=== PATIENT | male | born 1955 | race Caucasian/White ===

== ENCOUNTER 2016-06-19 12:52 | Emergency (ER) | payer MEDICAID ==
[2016-06-19] MEDS ORDERED: INDOMETHACIN 25 MG CAPSULE PO STA (13:55)
[2016-06-19] MEDS ORDERED: oxyCOD/ACETAMIN 5 MG/325 MG TABLET PO STA (13:55)
[2016-06-19] MEDS ORDERED: oxyCOD/ACETAMIN 5 MG/325 MG TABLET PO ONE (13:59)
[2016-06-19] MEDS ORDERED: INDOMETHACIN 25 MG CAPSULE PO ONE (13:59)
== END 2016-06-19 14:43 | disposition home or self-care (01) ==
DX: M10.072 Idiopathic gout, left ankle and foot (principal); M19.90 Unspecified osteoarthritis, unspecified site; I10 Essential (primary) hypertension; F17.200 Nicotine dependence, unspecified, uncomplicated
CPT/HCPCS: 99283; 99284; A9270

== ENCOUNTER 2017-06-04 13:18 | Emergency (ER) | payer MEDICAID ==
[2017-06-04 13:29] VITALS: BP 170/102
[2017-06-04] MEDS ORDERED: LIDOCAINE 1%-EPI 1:100000 20 ML MDV SUBQ STA (13:48)
[2017-06-04] MEDS ORDERED: HYDROcod/ACETAM 5/325 MG TABLET PO STA (13:48)
--- NOTE | 2017-06-04 13:49 | ED Physician Documentation ---
PD HPI LOWER EXT INJURY - Stated complaint Stated Complaint: KNEE PX - Chief complaint Chief Complaint: Ext Problem - History obtained from History obtained from: Patient - History of Present Illness PD HPI LOW EXT INJURY LOCATION: Other (Without specific trauma he has had 2 days of increasing left knee pain and swelling, he is unable to walk or bear weight now. He has had a history of gout but never in the knee. No fevers or chills.) Review of Systems Ten Systems: 10 systems reviewed and negative Constitutional: denies: Fever, Chills Cardiac: denies: Chest pain / pressure, Palpitations Respiratory: denies: Dyspnea, Cough GI: denies: Abdominal Pain PD PAST MEDICAL HISTORY - Past Medical History Past Medical History: Yes Cardiovascular: Hypertension Respiratory: None Neuro: None Endocrine/Autoimmune: None GI: None : None HEENT: None Psych: Anxiety Musculoskeletal: Osteoarthritis, Gout Derm: None - Past Surgical History Past Surgical History: No - Present Medications Home Medications: Ambulatory Orders Medication Instructions Recorded Confirmed Primidone 100 mg PO DAILY 04/29/14 06/04/17 Propranolol [Inderal] 40 mg PO BID 04/29/14 06/04/17 Albuterol Sulf [Ventolin Hfa 2 puffs PO DAILY 06/04/17 06/04/17 Inhaler] HYDROcod/ACETAM 5/325 [[place] 5/325] 1 - 2 ea PO Q6H PRN #15 tablet 06/04/17 Meloxicam [Mobic] 7.5 mg PO BIDWM PRN #15 tablet 06/04/17 - Allergies Allergies/Adverse Reactions: Allergies Allergy/AdvReac Type Severity Reaction Status Date / Time venom-honey bee Allergy Unknown Verified 06/04/17 13:29 [bee venom (honey bee)] - Social History Does the pt smoke?: No Smoking Status: Never smoker Does the pt drink ETOH?: Yes Does the pt have substance abuse?: No - Immunizations Immunizations are current?: Yes - POLST Patient has POLST: No PD ED PE NORMAL - Vitals Vital signs reviewed: Yes - General General: Alert and oriented X 3, No acute distress - HEENT HEENT: PERRL, EOMI - Neck Neck: Supple, no meningeal sign, No bony TTP - Back Back: No CVA TTP, No spinal TTP - Derm Derm: Normal color, Warm and dry - Extremities Extremities: Other (There is a large warm effusion of the left knee but without cellulitis. He is unable to range it. He walks only with significant pain.) - Neuro Neuro: Alert and oriented X 3, Normal speech - Psych Psych: Normal mood, Normal affect Results - Vitals Vitals: Vital Signs - 24 hr 06/04/17 13:28 Temperature 36.2 C L Heart Rate 87 Respiratory 16 Rate Blood Pressure 170/102 H O2 Saturation 99 Oxygen O2 Source Room air - Labs Labs: Microbiology 06/04/17 14:05 Body Fluid Culture - Preliminary Synovial Fluid Laboratory Tests 06/04/17 06/04/17 14:05 14:05 Fluid Source SYNOVIAL Fluid Color YELLOW Fluid Clarity HAZY Fluid WBC 7243 Fluid RBC 1461 Fluid Neutrophils % 90 Fluid Lymphocytes % 4 Fluid Monocytes % 5 Fluid Crystals NONE SEEN - Rads (name of study) L knee 4v Radiology: EMP read contemporaneously (Small to moderate effusion and ventral swelling with a distal tibial metaphysis enchondroma.) Procedures - Arthrocentesis Joint: Knee, Left Preparation: Consent obtained, Sterile prep and drape Anesthesia: Lidocaine 1% Fluid: Clear, Sent for cell count, Sent for crystals, Sent for culture, Fluid obtained - cc (65ml), Sent for gram stain Aftercare: Dressing applied, No complications PD MEDICAL DECISION MAKING - ED course ED course: 61-year-old gentleman with history of gout presents with an acute knee effusion and pain, he was medicated with Vicodin here and the effusion was drained his pain and no evidence of infection or crystals. The patient and family were counseled as to the diagnosis and need for follow- up. I counseled the patient with regard to signs and symptoms that would necessitate an urgent reevaluation in the emergency department. They understand they are welcome to return at any time if worse or if not improving as expected. This document was made in part using voice recognition software. While efforts are made to proofread this documents, sound alike and grammatical errors may occur. Departure - Departure Disposition: 01 Home, Self Care Clinical Impression: Effusion, left knee Condition: Good Record reviewed to determine appropriate education?: Yes Instructions: ED Effusion Knee Follow-Up: [facility] [Provider Group] - Within 1 week Prescriptions: HYDROcod/ACETAM 5/325 [[place] 5/325] 1 - 2 ea PO Q6H PRN #15 tablet PRN Reason: Pain Meloxicam [Mobic] 7.5 mg PO BIDWM PRN #15 tablet PRN Reason: Pain Comments: Your blood pressure was elevated today on check into the emergency department. This does not mean that you have hypertension, it is a common phenomenon to come to the emergency department and have elevated blood pressure. I recommend that you see your primary care physician within the week to have it rechecked when you are feeling better. Do not drink or drive while taking narcotic pain medication. Note that many narcotic pain relievers also contain Tylenol/acetaminophen. Please ensure that your total dose of acetaminophen from all sources does not exceed 3 g (3000 mg) per day. You may get constipated while on this medication. Take a stool softener such as Colace twice a day while you are on it. Also add an [id number] laxative such as senna or MiraLAX on any day that you do not have a bowel movement. If you received a narcotic pain medication or sedative while in the emergency department, do not drive for the next 24 hours.
--- NOTE | 2017-06-04 14:32 | XRAY Report ---
EXAM: LEFT KNEE RADIOGRAPHY EXAM DATE: 06/04/2017 02:00 PM. CLINICAL HISTORY: Knee pain. Trauma. COMPARISON: None. TECHNIQUE: 4 views. FINDINGS: Bones: No fracture or bone destructive process. An irregular medullary sclerotic area in the distal t ibial metaphysis measures 2.3 x 1.5 cm in lateral projection. No periostitis. Joints: No subluxation. Small to moderate joint effusion. Joint spaces are otherwise preserved. Soft Tissues: Anterior soft tissue swelling. Acetabular calcifications posterior lower thigh. IMPRESSION: 1. No fracture or bony malalignment. 2. [id number] joint effusion and ventral swelling. 3. An incidental 2.3 cm sclerotic area in the distal tibial metaphysis, compatible with enchondroma. [facility] Referring Provider Line: [phone] SITE ID: [id number]
[2017-06-04 14:47] LABS: CC,BF RBC 1461 /mm^3
[2017-06-04 15:10] LABS: LYMPHOCYTES %,BODY FLUID 4; MONOCYTES %,BODY FLUID 5 %
[2017-06-04 15:11] LABS: BF COLOR YELLOW; BF SOURCE SYNOVIAL
== END 2017-06-04 15:24 | disposition home or self-care (01) ==
LOC: ED 13:18
DX: M25.562 Pain in left knee (principal); M25.462 Effusion, left knee; M10.9 Gout, unspecified; M19.90 Unspecified osteoarthritis, unspecified site; I10 Essential (primary) hypertension
CPT/HCPCS: 20610; 73564; 87070; 87205; 89051; 89060; 99283; 99284; A9270

== ENCOUNTER 2017-07-02 09:51 | Outpatient (CLI) | payer MEDICAID ==
[2017-07-02 13:56] LABS: HEMOGLOBIN A1C 0.65 g/dL; HEMOGLOBIN A1C % 5.9 % (4.6-6.2)
[2017-07-02 14:13] LABS: ALBUMIN 3.7 g/dL (3.2-5.5); ALBUMIN/GLOBULIN RATIO 0.9 (1.0-2.2); ALKALINE PHOSPHATASE 75 IU/L (42-121); ALT ALANINE AMINOTRANSFERASE 49 IU/L (10-60); AST ASPARTATE AMINOTRANSFERASE 29 IU/L (10-42); BILIRUBIN,TOTAL 0.5 mg/dL (0.2-1.0); BUN - BLOOD UREA NITROGEN 16 mg/dL (6-20); CALCIUM 8.5 mg/dL (8.5-10.3); CARBON DIOXIDE - CO2 27 mmol/L (21-32); CHLORIDE 104 mmol/L (101-111); CHOL/HDL RATIO 4.3 (<5.0); CHOLESTEROL 214 mg/dL; CREATININE 0.9 mg/dL (0.6-1.2); GFR - MDRD 86 (>89); GLUCOSE 124 mg/dL (70-100); HDL CHOLESTEROL 50 mg/dL; LDL CHOLESTEROL,CALCULATED 137 mg/dL; LDL/HDL RATIO 2.7 (<3.6); SODIUM 136 mmol/L (135-145); TOTAL PROTEIN 7.7 g/dL (6.7-8.2); VLDL CHOLESTEROL 27 mg/dL
[2017-07-02 14:50] LABS: BASOPHILS % (AUTO) 0.4 %; EOSINOPHILS # (AUTO) 0.3 10^3/uL (0.0-0.7); EOSINOPHILS % (AUTO) 3.3 %; HGB - HEMOGLOBIN 14.5 g/dL (14.0-18.0); LYMPHOCYTES % (AUTO) 35.2 %; MEAN CORPUSCULAR HEMOGLOBIN 32.6 pg (27.0-31.0); MEAN CORPUSCULAR HGB CONC 33.8 g/dL (32.0-36.0); MEAN CORPUSCULAR VOLUME 96.5 fL (80.0-94.0); MEAN PLATELET VOLUME 9.2 fL (7.4-11.4); MONOCYTES # (AUTO) 0.7 10^3/uL (0.0-1.0); MONOCYTES % (AUTO) 8.2 %; NEUTROPHILS # (AUTO) 4.6 10^3/uL (1.5-6.6); NEUTROPHILS % (AUTO) 52.9 %; PLT - PLATELET COUNT 302 10^3/uL (130-450); RED BLOOD COUNT 4.44 10^6/uL (4.70-6.10); RED CELL DISTRIBUTION WIDTH 13.7 % (12.0-15.0); WHITE BLOOD COUNT 8.6 x10^3/uL (4.8-10.8)
== END 2017-07-02 09:52 | disposition home or self-care (01) ==
LOC: LAB.N 09:51
PROVIDERS: ATTEND Family Medicine
DX: E55.9 Vitamin D deficiency, unspecified (principal); E11.9 Type 2 diabetes mellitus without complications; E78.5 Hyperlipidemia, unspecified; M10.9 Gout, unspecified; I10 Essential (primary) hypertension
CPT/HCPCS: 36415; 80050; 80061; 82306; 83036; 83721

== ENCOUNTER 2017-09-09 10:24 | Emergency (ER) | payer MEDICAID ==
[2017-09-09 10:33] VITALS: BP 147/98
[2017-09-09] MEDS ORDERED: LIDOCAINE 1% 2 ML VIAL ONE (12:16)
[2017-09-09 13:22] LABS: BASOPHILS % (AUTO) 0.4 %; EOSINOPHILS # (AUTO) 0.2 10^3/uL (0.0-0.7); EOSINOPHILS % (AUTO) 1.9 %; HGB - HEMOGLOBIN 13.9 g/dL (14.0-18.0); LYMPHOCYTES # (AUTO) 2.7 10^3/uL (1.5-3.5); LYMPHOCYTES % (AUTO) 25.6 %; MEAN CORPUSCULAR HEMOGLOBIN 33.2 pg (27.0-31.0); MEAN CORPUSCULAR HGB CONC 34.3 g/dL (32.0-36.0); MEAN CORPUSCULAR VOLUME 96.9 fL (80.0-94.0); MEAN PLATELET VOLUME 8.7 fL (7.4-11.4); MONOCYTES # (AUTO) 1.2 10^3/uL (0.0-1.0); MONOCYTES % (AUTO) 11.6 %; NEUTROPHILS # (AUTO) 6.3 10^3/uL (1.5-6.6); NEUTROPHILS % (AUTO) 60.5 %; PLT - PLATELET COUNT 282 10^3/uL (130-450); RED BLOOD COUNT 4.18 10^6/uL (4.70-6.10); RED CELL DISTRIBUTION WIDTH 14.2 % (12.0-15.0); WHITE BLOOD COUNT 10.4 x10^3/uL (4.8-10.8)
[2017-09-09 13:31] LABS: ALBUMIN 3.8 g/dL (3.2-5.5); ALBUMIN/GLOBULIN RATIO 0.9 (1.0-2.2); BILIRUBIN,TOTAL 1.4 mg/dL (0.2-1.0); CALCIUM 8.8 mg/dL (8.5-10.3); CREATININE 0.9 mg/dL (0.6-1.2); TOTAL PROTEIN 7.9 g/dL (6.7-8.2)
[2017-09-09 14:09] LABS: CC,BF RBC 4029 /mm^3
[2017-09-09 14:10] LABS: BF COLOR YELLOW; BF SOURCE SYNOVIAL
--- NOTE | 2017-09-09 14:12 | ED Physician Documentation ---
PD HPI LOWER EXT INJURY - Stated complaint Stated Complaint: L KNEE PX - Chief complaint Chief Complaint: Ext Problem - History obtained from History obtained from: Patient - History of Present Illness PD HPI LOW EXT INJURY LOCATION: Left, Knee Type of injury: Other (over use) Where injury occurred: Home, Bar Timing - onset: How many days ago (5) Timing - duration: Days (5) Timing - details: Gradual onset, Still present Improved by: Rest, Immobilization Worsened by: Moving, Palpating Associated symptoms: Swelling Contributing factors: No: Anticoagulated Similar symptoms before: Diagnosis (joint effusion) Recently seen: Emergency Dept - Additional information Additional information: 61-year-old male was seen in the emergency department here 3 months ago with a knee effusion improved with drainage of the knee and he follows up with orthopedics did not require further treatment. He has a new girlfriend he has been out dancing and he has been on his feet a lot. He now has pain in his left knee again with swelling his pain is gotten worse he is unable to ambulate today without severe pain. He has not had fever chills or fatigue. Review of Systems Constitutional: denies: Fever, Chills, Myalgias, Fatigue Eyes: denies: Decreased vision Ears: denies: Ear pain Nose: denies: Congestion Throat: denies: Sore throat Respiratory: denies: Dyspnea, Cough GI: denies: Abdominal Pain, Nausea, Vomiting : denies: Dysuria Skin: denies: Rash Musculoskeletal: reports: Joint pain, Joint swelling, Pain with weight bearing. denies: Neck pain, Back pain Neurologic: denies: Generalized weakness, Focal weakness, Numbness PD PAST MEDICAL HISTORY - Past Medical History Past Medical History: Yes Cardiovascular: Hypertension Respiratory: None Neuro: None Endocrine/Autoimmune: None GI: None : None HEENT: None Psych: Anxiety Musculoskeletal: Osteoarthritis, Gout Derm: None - Past Surgical History Past Surgical History: No - Present Medications Home Medications: Ambulatory Orders Medication Instructions Recorded Confirmed Primidone 100 mg PO DAILY 04/29/14 06/04/17 Propranolol [Inderal] 40 mg PO BID 04/29/14 06/04/17 Albuterol Sulf [Ventolin Hfa 2 puffs PO DAILY 06/04/17 06/04/17 Inhaler] - Allergies Allergies/Adverse Reactions: Allergies Allergy/AdvReac Type Severity Reaction Status Date / Time venom-honey bee Allergy Unknown Verified 06/04/17 13:29 [bee venom (honey bee)] - Social History Does the pt smoke?: No Smoking Status: Never smoker Does the pt drink ETOH?: Yes Does the pt have substance abuse?: No - Immunizations Immunizations are current?: Yes - POLST Patient has POLST: No PD ED PE NORMAL - Vitals Vital signs reviewed: Yes (Hypertensive) - General General: Alert and oriented X 3, No acute distress, Well developed/nourished - HEENT HEENT: Atraumatic, PERRL, EOMI - Respiratory Respiratory: No respiratory distress - Derm Derm: Normal color, Warm and dry, No rash - Extremities Extremities: No deformity, No edema, Other (over the left knee is an area of abrasion that looks superficially infected medially. There is not much surrounding erythema and the area is not particularly tender. The knee joint itself has a palpable effusion and is tender. It is not warm to the touch. ) - Neuro Neuro: Alert and oriented X 3, No motor deficit, No sensory deficit, Normal speech Eye Opening: Spontaneous Motor: Obeys Commands Verbal: Oriented GCS Score: 15 - Psych Psych: Normal mood, Normal affect Results - Vitals Vitals: Vital Signs - 24 hr 09/09/17 10:28 Temperature 36.4 C L Heart Rate 66 Respiratory 16 Rate Blood Pressure 147/98 H O2 Saturation 98 Oxygen O2 Source Room air - Labs Labs: Microbiology 09/09/17 11:31 Gram Stain - Final Knee - Left 09/09/17 12:31 Body Fluid Culture - Preliminary Synovial Fluid 09/09/17 11:04 Wound Culture - Preliminary Abscess Laboratory Tests 09/09/17 09/09/17 09/09/17 11:31 11:31 12:41 WBC 10.4 RBC 4.18 L Hgb 13.9 L Hct 40.5 L MCV 96.9 H MCH 33.2 H MCHC 34.3 RDW 14.2 Plt Count 282 MPV 8.7 Neut # 6.3 Lymph # 2.7 [place] # 1.2 H Eos # 0.2 Baso # 0.0 Absolute Nucleated RBC 0.01 Nucleated RBC % 0.1 ESR Sodium Potassium Chloride Carbon Dioxide Anion Gap BUN Creatinine Estimated GFR (MDRD) Glucose Calcium Total Bilirubin AST ALT Alkaline Phosphatase Total Protein Albumin Globulin Albumin/Globulin Ratio Lipase Fluid Source SYNOVIAL Fluid Color YELLOW Fluid Clarity CLOUDY Fluid WBC 47197 Fluid RBC 4029 Fluid Neutrophils % 94 Fluid Lymphocytes % 0 Fluid Monocytes % 6.0 Fluid Eosinophils % 0 Fluid Basophils % 0 Fluid Macrophages % 0 Fld Mesothelial Cell % 0 Fluid Crystals NONE SEEN 09/09/17 09/09/17 12:41 12:41 WBC RBC Hgb Hct MCV MCH MCHC RDW Plt Count MPV Neut # Lymph # [place] # Eos # Baso # Absolute Nucleated RBC Nucleated RBC % ESR 14 Sodium 131 L Potassium 3.6 Chloride 95 L Carbon Dioxide 28 Anion Gap 8.0 BUN 14 Creatinine 0.9 Estimated GFR (MDRD) 86 L Glucose 115 H Calcium 8.8 Total Bilirubin 1.4 H AST 28 ALT 36 Alkaline Phosphatase 81 Total Protein 7.9 Albumin 3.8 Globulin 4.1 Albumin/Globulin Ratio 0.9 L Lipase 117 H Fluid Source Fluid Color Fluid Clarity Fluid WBC Fluid RBC Fluid Neutrophils % Fluid Lymphocytes % Fluid Monocytes % Fluid Eosinophils % Fluid Basophils % Fluid Macrophages % Fld Mesothelial Cell % Fluid Crystals Procedures - Splint (location) left knee Splint applied by: Tech Type of splint: Other (long leg knee immobilizer) Other: Patient tolerated well, No complications, Neurovascular intact - Arthrocentesis Joint: Knee Preparation: Sterile prep and drape Anesthesia: Lidocaine 1% Fluid: Sent for cell count, Cloudy, Sent for crystals, Sent for culture, Fluid obtained - cc (35), Sent for gram stain Aftercare: Dressing applied, Patient tolerated well PD MEDICAL DECISION MAKING - ED course Complexity details: reviewed results, re-evaluated patient, considered differential, d/w patient ED course: 61-year-old male with a recurrent joint effusion in the left knee has been quite active and he has developed significant pain and swelling in the knee. He does have a palpable effusion and 35 cc of cloudy fluid is drained off of the knee with relief of pain. The patient is placed into a long knee immobilizer for comfort. The patient becomes anxious while awaiting results of his cell count for his arthrocentesis and wants to leave the emergency department before results are in. He has a normal white blood cell count normal sedimentation rate and no fever. He does not appear toxic. After the patient is left the department his cell count returns at over 60,000 with 90% polys. Gram stain is negative. The joint fluid is cultured. DR. Barclay is consulted in the case and recommends bringing the patient back to the hospital for surgical clean out of the joint tonight. The patient is contacted by phone and does not answer and a message is left for him to return to the hospital tonight or in the AM if he has recently eaten. Departure - Departure Disposition: 01 Home, Self Care Clinical Impression: Effusion, left knee Condition: Stable Instructions: ED Effusion Knee Follow-Up: [facility] [Provider Group] Discharge Date/Time: 09/09/17 14:17
[2017-09-09 14:59] LABS: BASOPHILS %,BODY FLUID 0 %; EOSINOPHILS %,BODY FLUID 0 %; LYMPHOCYTES %,BODY FLUID 0; MACROPHAGES %,BODY FLUID 0 %; MESOTHELIAL %, BF 0 %
== END 2017-09-09 14:17 | disposition home or self-care (01) ==
LOC: ED 10:24
DX: M25.462 Effusion, left knee (principal); I10 Essential (primary) hypertension
CPT/HCPCS: 20610; 29530; 36415; 80053; 83690; 85025; 85651; 87070; 87205; 89051; 89060; 99283

== ENCOUNTER 2017-11-20 07:38 | Emergency (ER) | payer MEDICAID ==
[2017-11-20] MEDS ORDERED: oxyCOD/ACETAMIN 5 MG/325 MG TABLET PO STA (08:45)
[2017-11-20] MEDS ORDERED: predniSONE 20 MG TABLET PO STA (08:45)
--- NOTE | 2017-11-20 08:49 | ED Physician Documentation ---
History of Present Illness - Stated complaint Stated Complaint: LT ANKLE PX - Chief complaint Chief Complaint: Ext Problem - Additonal information Additional information: hx from pt hx gout has pain redness and swelling to medical L ankle c/w gout states prednisone has worked well for him in the past no injury otherwise well Review of Systems Musculoskeletal: reports: Joint pain Immunocompromised: denies: Immunocompromised PD PAST MEDICAL HISTORY - Past Medical History Past Medical History: Yes Cardiovascular: Hypertension Respiratory: None Endocrine/Autoimmune: None GI: None : None HEENT: None Psych: Anxiety Musculoskeletal: Osteoarthritis, Gout Derm: None - Past Surgical History Past Surgical History: No - Present Medications Home Medications: Ambulatory Orders Medication Instructions Recorded Confirmed Primidone 100 mg PO DAILY 04/29/14 06/04/17 Propranolol [Inderal] 40 mg PO BID 04/29/14 06/04/17 Albuterol Sulf [Ventolin Hfa 2 puffs PO DAILY 06/04/17 06/04/17 Inhaler] Cetirizine HCl 10 mg PO DAILY 11/20/17 11/20/17 Oxycodone HCl/Acetaminophen 1 each PO Q6HR PRN #6 tablet 11/20/17 [Percocet 5-325 mg Tablet] predniSONE [Deltasone] 20 mg PO [id number] #21 tab 11/20/17 - Allergies Allergies/Adverse Reactions: Allergies Allergy/AdvReac Type Severity Reaction Status Date / Time venom-honey bee Allergy Unknown Verified 11/20/17 07:51 [bee venom (honey bee)] - Social History Does the pt smoke?: No Smoking Status: Never smoker Does the pt drink ETOH?: Yes Does the pt have substance abuse?: No - Immunizations Immunizations are current?: Yes - POLST Patient has POLST: No PD ED PE NORMAL - Vitals Vital signs reviewed: Yes - Cardiac Cardiac: RRR - Respiratory Respiratory: No respiratory distress, Clear bilaterally - Extremities Extremities: Other (L ankle with redness TTP and mild swelling, no open wounds, MSV intact) Results - Vitals Vitals: Vital Signs - 24 hr 11/20/17 07:47 Temperature 36.1 C L Heart Rate 80 Respiratory 18 Rate Blood Pressure 163/101 H O2 Saturation 96 Oxygen O2 Source Room air PD MEDICAL DECISION MAKING - ED course ED course: MSE exam provided hx gout and this feels and looks like gout no injury no open wound or streaking or fever to suggest infected joint has had good results with prednisone before so will rx same have rxed allopurinol for pt in the past but this was not continued by PMD will dc with prednsione, a refill for future flare per pt req, and small # percocet until prednsione can start to work as the pain is quite severe no life limb threatening issue requiring admit surgery etc identified and feel pt stable and safe to dc home - Sepsis Event Vital Signs: Vital Signs - 24 hr 11/20/17 07:47 Temperature 36.1 C L Heart Rate 80 Respiratory 18 Rate Blood Pressure 163/101 H O2 Saturation 96 Oxygen O2 Source Room air Departure - Departure Disposition: Home, Self Care Clinical Impression: Gout attack Qualifiers: Gout site: ankle Gout etiology: unspecified cause Laterality: left Qualified Code(s): M10.9 - Gout, unspecified Condition: Good Instructions: ED Arthritis Gout Prescriptions: Oxycodone HCl/Acetaminophen [Percocet 5-325 mg Tablet] 1 each PO Q6HR PRN #6 tablet PRN Reason: Severe Pain predniSONE [Deltasone] 20 mg PO [id number] #21 tab Comments: Take the prednisone as prescribed to decrease the painful inflammation of gout I also prescribed a small number or narcotic pills called percocet - only take this medication as needed for severe pain until the prednisone starts to work - no driving. Follow up with your PMD as needed Return to the ER if worse And please get your blood pressure rechecked - it was high today
[2017-11-20 09:02] VITALS: BP 164/100
== END 2017-11-20 09:01 | disposition home or self-care (01) ==
LOC: ED 07:38
DX: M10.9 Gout, unspecified (principal)
CPT/HCPCS: 99283; A9270; J7512

== ENCOUNTER 2018-01-24 12:37 | Emergency (ER) | payer MEDICAID ==
[2018-01-24 12:41] VITALS: BP 143/91
[2018-01-24] MEDS ORDERED: DEXAMETHASONE 10 MG/ML VIAL PO STA (14:07)
--- NOTE | 2018-01-24 14:09 | ED Physician Documentation ---
History of Present Illness - Stated complaint Stated Complaint: ANKLE PX - Chief complaint Chief Complaint: Ext Problem - History obtained from History obtained from: Patient - History of Present Illness Timing: How many days ago (3) - Additonal information Additional information: 62-year-old male with a history of gout has developed gout in his right ankle. He has had this happen to him in a number of times previously he has swelling pain and exquisite pain. He has had good luck in the past with the use of prednisone. On his last visit he improved and he also indicates that on the time that he was here with a knee effusion improved with that as well without surgical intervention. Review of Systems Constitutional: denies: Fever Eyes: denies: Decreased vision Ears: denies: Ear pain Nose: denies: Congestion Throat: denies: Sore throat Respiratory: denies: Cough GI: denies: Vomiting : denies: Dysuria Skin: denies: Rash Musculoskeletal: reports: Extremity pain, Joint pain, Joint swelling, Pain with weight bearing. denies: Neck pain, Back pain Neurologic: denies: Generalized weakness, Focal weakness, Numbness PD PAST MEDICAL HISTORY - Past Medical History Past Medical History: Yes Cardiovascular: Hypertension Respiratory: None Endocrine/Autoimmune: None GI: None : None HEENT: None Psych: Anxiety Musculoskeletal: Osteoarthritis, Gout Derm: None - Past Surgical History Past Surgical History: No - Present Medications Home Medications: Ambulatory Orders Medication Instructions Recorded Confirmed Primidone 100 mg PO DAILY 04/29/14 06/04/17 Propranolol [Inderal] 40 mg PO BID 04/29/14 06/04/17 Albuterol Sulf [Ventolin Hfa 2 puffs PO DAILY 06/04/17 06/04/17 Inhaler] Cetirizine HCl 10 mg PO DAILY 11/20/17 11/20/17 oxyCODONE/ACET 5/325 [Percocet 5 1 - 2 each PO Q4-6H PRN #12 tablet 01/24/18 mg/325 mg] predniSONE [Prednisone] 40 mg PO DAILY #10 tablet 01/24/18 - Allergies Allergies/Adverse Reactions: Allergies Allergy/AdvReac Type Severity Reaction Status Date / Time venom-honey bee Allergy Unknown Verified 01/24/18 12:41 [bee venom (honey bee)] - Social History Does the pt smoke?: No Smoking Status: Never smoker Does the pt drink ETOH?: Yes Does the pt have substance abuse?: No - Immunizations Immunizations are current?: Yes - POLST Patient has POLST: No PD ED PE NORMAL - Vitals Vital signs reviewed: Yes (tachy and hypertensive) - General General: Alert and oriented X 3, No acute distress - HEENT HEENT: Atraumatic, PERRL, EOMI - Respiratory Respiratory: No respiratory distress - Derm Derm: Normal color, Warm and dry, No rash - Extremities Extremities: No deformity, Other (There is swelling and point tenderness to the medial malleolus on the right side and a joint effusion with overlying erythema. There is exquisit pain with small movements of the foot consistent with gout. 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 He is administered dexamethasone 10 mg orally and we will place him on some prednisone and give him a short course of pain medication. - Sepsis Event Vital Signs: Vital Signs - 24 hr 01/24/18 12:40 Temperature 35.9 C L Heart Rate 106 H Respiratory 18 Rate Blood Pressure 143/91 H O2 Saturation 97 Oxygen O2 Source Room air Departure - Departure Disposition: 01 Home, Self Care Clinical Impression: Gout attack Qualifiers: Gout site: ankle Gout etiology: idiopathic Laterality: right Qualified Code(s): M10.071 - Idiopathic gout, right ankle and foot Condition: Stable Instructions: ED Arthritis Gout, ED Diet Gout Follow-Up: David Cardona MD [Primary Care Provider] - Prescriptions: oxyCODONE/ACET 5/325 [Percocet 5 mg/325 mg] 1 - 2 each PO Q4-6H PRN #12 tablet PRN Reason: Pain predniSONE [Prednisone] 40 mg PO DAILY #10 tablet
[2018-01-24] MEDS ORDERED: CHERRY SYRUP 10 ML UDC PO ONE (14:18)
== END 2018-01-24 14:27 | disposition home or self-care (01) ==
LOC: ED 12:37
DX: M10.071 Idiopathic gout, right ankle and foot (principal); I10 Essential (primary) hypertension
CPT/HCPCS: 99283; A9270

== ENCOUNTER 2018-02-20 09:44 | Outpatient (CLI) | payer MEDICAID | END 2018-02-20 09:45 | disposition home or self-care (01) | LOC: LAB.N 09:44 | PROVIDERS: ATTEND Physician Assistant Medical | DX: M10.9 Gout, unspecified (principal) | CPT/HCPCS: 36415; 84550 ==

== ENCOUNTER → 2018-03-13 | Outpatient (CLI) | payer MEDICAID | LOC: RT.N 13:42 | PROVIDERS: ATTEND Family Medicine | DX: I63.9 Cerebral infarction, unspecified (principal) | CPT/HCPCS: 93005 ==

== ENCOUNTER 2018-04-08 10:00 | Emergency (ER) | payer MEDICAID ==
[2018-04-08 10:25] VITALS: BP 175/104
[2018-04-08 10:56] LABS: BASOPHILS # (AUTO) 0.1 10^3/uL (0.0-0.1); EOSINOPHILS # (AUTO) 0.2 10^3/uL (0.0-0.7); EOSINOPHILS % (AUTO) 1.6 %; LYMPHOCYTES # (AUTO) 3.1 10^3/uL (1.5-3.5); LYMPHOCYTES % (AUTO) 20.4 %; MEAN CORPUSCULAR HEMOGLOBIN 32.8 pg (27.0-31.0); MEAN CORPUSCULAR HGB CONC 34.1 g/dL (32.0-36.0); MEAN CORPUSCULAR VOLUME 96.1 fL (80.0-94.0); MEAN PLATELET VOLUME 8.3 fL (7.4-11.4); MONOCYTES # (AUTO) 1.1 10^3/uL (0.0-1.0); MONOCYTES % (AUTO) 7.3 %; NEUTROPHILS # (AUTO) 10.5 10^3/uL (1.5-6.6); NEUTROPHILS % (AUTO) 69.7 %; PLT - PLATELET COUNT 423 10^3/uL (130-450); RED BLOOD COUNT 4.58 10^6/uL (4.70-6.10); RED CELL DISTRIBUTION WIDTH 14.2 % (12.0-15.0)
[2018-04-08 11:10] LABS: CALCIUM 9.1 mg/dL (8.5-10.3); CREATININE 0.7 mg/dL (0.6-1.2)
--- NOTE | 2018-04-08 11:35 | XRAY Report ---
Reason: left foot pain Procedure Date: 04/08/2018 Accession Number: [id number] / [id number] Procedure: XR - Foot 3 View LT CPT Code: FULL RESULT: EXAM: LEFT FOOT RADIOGRAPHY EXAM DATE: 04/08/2018 11:21 AM. CLINICAL HISTORY: Left foot pain. COMPARISON: None. TECHNIQUE: 3 views. FINDINGS: Bones: Mild enthesopathy at the posterior calcaneal insertion. Mild degenerative changes at the navicular. No fracture. Joints: Normal. No subluxations. Soft Tissues: Mild soft tissue swelling in the region of the first metatarsophalangeal joint. IMPRESSION: Soft tissue swelling in the region of the first metatarsophalangeal joint without overt osseous destruction. [facility]
--- NOTE | 2018-04-08 12:22 | ED Physician Documentation ---
History of Present Illness - Stated complaint Stated Complaint: LEFT ANKLE/FOOT PX - Chief complaint Chief Complaint: Ext Problem - Additonal information Additional information: 62-year-old male presents the emergency department with ongoing complaints of gout. The patient's had numerous bouts of gout and presents with pain in his left great toe similar to other episodes of gout. The patient denies fever, chills, trauma or significant swelling. Symptoms are described as moderate. No attempts at symptom management. No other associated symptoms. No triggering factors. No relieving factors Review of Systems Constitutional: denies: Fever Eyes: denies: Discharge Ears: denies: Ear pain Nose: denies: Congestion Throat: denies: Sore throat Cardiac: denies: Chest pain / pressure Respiratory: denies: Cough GI: denies: Abdominal Pain : denies: Dysuria Skin: denies: Laceration (s) Musculoskeletal: reports: Extremity pain, Joint pain Neurologic: denies: Generalized weakness PD PAST MEDICAL HISTORY - Past Medical History Past Medical History: Yes Cardiovascular: Hypertension Respiratory: None Endocrine/Autoimmune: None GI: None : None HEENT: None Psych: Anxiety Musculoskeletal: Osteoarthritis, Gout Derm: None - Past Surgical History Past Surgical History: No - Present Medications Home Medications: Ambulatory Orders Medication Instructions Recorded Confirmed Primidone 100 mg PO DAILY 04/29/14 04/08/18 Propranolol [Inderal] 40 mg PO BID 04/29/14 04/08/18 Albuterol Sulf [Ventolin Hfa 2 puffs PO DAILY 06/04/17 04/08/18 Inhaler] Cetirizine HCl 10 mg PO DAILY 11/20/17 04/08/18 - Allergies Allergies/Adverse Reactions: Allergies Allergy/AdvReac Type Severity Reaction Status Date / Time venom-honey bee Allergy Unknown Verified 01/24/18 12:41 [bee venom (honey bee)] - Social History Does the pt smoke?: No Smoking Status: Never smoker Does the pt drink ETOH?: Yes Does the pt have substance abuse?: No - Immunizations Immunizations are current?: Yes - POLST Patient has POLST: No PD ED PE NORMAL - General General: Alert and oriented X 3, No acute distress - HEENT HEENT: Atraumatic, PERRL, EOMI, Ears normal - Cardiac Cardiac: RRR - Respiratory Respiratory: No respiratory distress - Derm Derm: Normal color - Extremities Extremities: No deformity - Neuro Neuro: Alert and oriented X 3, Normal speech - Psych Psych: Normal affect PD ED PE EXPANDED - Extremities Feet visual: 1 - tenderness (The patient has some mild swelling, there is erythematous changes and tenderness. There is no cellulitis, signs of abscess or bony deformity) Results - Vitals Vitals: Vital Signs - 24 hr 04/08/18 10:23 Temperature 36.1 C L Heart Rate 102 H Respiratory 16 Rate Blood Pressure 175/104 H O2 Saturation 100 Oxygen O2 Source Room air - Labs Labs: Laboratory Tests 04/08/18 04/08/18 04/08/18 10:45 10:45 10:45 WBC 15.0 H RBC 4.58 L Hgb 15.0 Hct 44.0 MCV 96.1 H MCH 32.8 H MCHC 34.1 RDW 14.2 Plt Count 423 MPV 8.3 Neut # (Auto) 10.5 H Lymph # (Auto) 3.1 [place] # (Auto) 1.1 H Eos # (Auto) 0.2 Baso # (Auto) 0.1 Absolute Nucleated RBC 0.01 Nucleated RBC % 0.0 Sodium 136 Potassium 3.5 Chloride 101 Carbon Dioxide 26 Anion Gap 9.0 BUN 11 Creatinine 0.7 Estimated GFR (MDRD) 114 Glucose 140 H Uric Acid 7.4 H Calcium 9.1 - Rads (name of study) foot XR Radiology: Final report received, See rad report PD MEDICAL DECISION MAKING - ED course ED course: The patient absconded from the emergency department because he felt that the weight was longer than it should be. I was never able to speak to the patient prior to him leaving the emergency department. The nursing staff explained to h im that we were attending to multiple very sick patients and And that we were sorry for the unexpected delays. The patient had only been in the emergency department 2 hours before he decided to leave with out completion of his care. Departure - Departure Disposition: ED Left Without Being Seen Clinical Impression: Foot pain Qualifiers: Laterality: unspecified laterality Qualified Code(s): M79.673 - Pain in unspecified foot Condition: Good Discharge Date/Time: 04/08/18 12:24
== END 2018-04-08 12:24 | disposition left against medical advice (07) ==
LOC: ED 10:00
DX: Z53.21 Procedure and treatment not carried out due to patient leaving prior to being seen by health care provider (principal); M25.572 Pain in left ankle and joints of left foot; I10 Essential (primary) hypertension
CPT/HCPCS: 36415; 80048; 84550; 85025; 99281; 99283

== ENCOUNTER 2019-05-22 14:48 | Outpatient (CLI) | payer MEDICAID ==
--- NOTE | 2019-05-22 15:47 | XRAY Report ---
Reason: CHEST DISCOMFORT Procedure Date: 05/22/2019 Accession Number: [id number] / [id number] Procedure: XRN - Chest 2 View X-Ray CPT Code: 53294 Final Report FULL RESULT: EXAM: CHEST RADIOGRAPHY EXAM DATE: 05/22/2019 03:16 PM. CLINICAL HISTORY: CHEST DISCOMFORT. COMPARISON: RIBS W/PA CHEST RT 08/17/2014 2:33 PM. TECHNIQUE: 2 views. FINDINGS: Lungs/Pleura: No focal opacities evident. No pleural effusion. No pneumothorax. Normal volumes. Mediastinum: Heart and mediastinal contours are unremarkable. Other: DJD spine IMPRESSION: No active cardiopulmonary disease RADIA
--- NOTE | 2019-05-22 15:50 | XRAY Report ---
Reason: FACIAL PAIN Procedure Date: 05/22/2019 Accession Number: [id number] / [id number] Procedure: XRN - Facial Bones Complete CPT Code: Final Report FULL RESULT: EXAM: FACIAL BONES RADIOGRAPHY EXAM DATE: 05/22/2019 03:34 PM. CLINICAL HISTORY: FACIAL PAIN. COMPARISON: None. TECHNIQUE: 5 views. FINDINGS: Bones: Deformity of nasal bone suggestive of chronic fracture. Right zygoma incompletely visualized Temporomandibular Joints: Incompletely visualized Sinuses: Opacification of left maxillary sinus Other: Normal. No soft tissue swelling. IMPRESSION: Opacification left maxillary sinus. Recommend CT scan for further evaluation. RADIA
== END 2019-05-22 14:49 | disposition home or self-care (01) ==
LOC: DI.N 14:48
PROVIDERS: ATTEND Family Medicine
DX: R07.89 Other chest pain (principal); R51 Headache
CPT/HCPCS: 70150; 71046

== ENCOUNTER 2019-06-02 12:00 | Outpatient (CLI) | payer MEDICAID ==
--- NOTE | 2019-06-03 13:39 | CT Report ---
Reason: FACIAL PAIN Procedure Date: 06/02/2019 Accession Number: [id number] / [id number] Procedure: CT - MAXILLOFACIAL WO CPT Code: Final Report FULL RESULT: EXAM: CT MAXILLOFACIAL WITHOUT CONTRAST EXAM DATE: 06/02/2019 12:27 PM. CLINICAL HISTORY: FACIAL PAIN. COMPARISONS: FACIAL BONES COMPLETE 05/22/2019 3:18 PM. TECHNIQUE: Thin-section axial images were acquired of the face without contrast. Post-processing: Coronal and sagittal reformats. Other: None. In accordance with CT protocol optimization, one or more of the following dose reduction techniques were utilized for this exam: automated exposure control, adjustment of mA and/or KV based on patient size, or use of iterative reconstructive technique. FINDINGS: Soft Tissue: Symmetric and unremarkable. Orbits: Symmetric and unremarkable. Bones: There is chronic appearing cortical thickening and sclerosis of the wall of the right maxillary sinus and right frontal sinus, likely the sequela of chronic sinus inflammatory disease. Negative for an acute fracture. There is left-sided C2-C3 facet fusion. 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 No mandible fracture. Sinuses: There is complete opacification of the right frontal and right maxillary sinus. There is anterior right ethmoid sinus opacification. The mastoid sinuses are clear. Middle ear space appears aerated. Other: None. IMPRESSION: 1. Chronic appearing sinus inflammatory disease with complete opacification of the right frontal and maxillary sinus. Associated chronic bony changes noted. 2. No acute fracture. RADIA
== END 2019-06-02 12:01 | disposition home or self-care (01) ==
LOC: DI 12:00
PROVIDERS: ATTEND Physician Assistant Medical
DX: J32.1 Chronic frontal sinusitis (principal); J32.0 Chronic maxillary sinusitis
CPT/HCPCS: 70486

== ENCOUNTER 2023-07-25 08:00 | Outpatient (CLI) | payer MEDICARE, MEDICAID | END 2023-07-25 08:01 | disposition home or self-care (01) | LOC: LAB.N 08:00 | PROVIDERS: ATTEND Family Medicine | DX: R05.9 Cough, unspecified (principal) ==

== ENCOUNTER 2023-07-25 14:00 | Outpatient (CLI) | payer MEDICARE, MEDICAID ==
--- NOTE | 2023-07-25 16:50 | XRAY Report ---
PROCEDURE: Chest 2V INDICATIONS: COUGH TECHNIQUE: 2 views of the chest were acquired. COMPARISON: None. FINDINGS: Surgical changes and devices: None. Lungs and pleura: No pleural effusions or pneumothorax. Retrocardiac opacity. Mediastinum: Mediastinal contours appear normal. Heart size is normal. Bones and chest wall: No suspicious bony lesions. Overlying soft tissues appear unremarkable. IMPRESSION: Retrocardiac opacity suspicious for pneumonia. Reviewed by: Madeleine Cee MD on 07/25/2023 4:48 PM PDT Approved by: Madeleine Cee MD on 07/25/2023 4:48 PM PDT Station ID: [id number]
== END 2023-07-25 14:15 | disposition home or self-care (01) ==
LOC: DI.N 14:00
PROVIDERS: ATTEND Family Medicine
DX: R05.9 Cough, unspecified (principal); R91.8 Other nonspecific abnormal finding of lung field